=== PATIENT | male | born 1980 ===

== ENCOUNTER 2019-06-16 17:41 | Inpatient (IN) | payer OTHER, SELFPAY ==
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
[2019-06-16 17:43] VITALS: BP 132/90; PULSE 80; RESP 18; O2SAT 96
--- NOTE | 2019-06-16 17:50 | DI.CT_ITS ---
SYMPTOM/DIAGNOSIS: TRAUMA CHEST CT: There is a small right pneumothorax. There is mild atelectasis at the right lung base. No effusion seen. There are nondisplaced fractures of the right 2nd, 3rd and 4th ribs. The spine appears intact. The heart and great vessels appear intact. IMPRESSION: Right 2nd through 4th rib fractures. Small right pneumothorax. CT ABDOMEN AND PELVIS: There is artifact related to the patient's arm positioning. The liver, spleen, pancreas, kidneys and adrenals appear normal. There is no free air or free fluid. There is no bowel dilatation or wall thickening. Bladder and prostate appear intact. No acute fractures are seen. There is an old left L3 transverse process fracture. IMPRESSION: No acute abnormality.
[2019-06-16] MEDS: Normal Saline 1,000 ML 1000 ML IV ×2 (18:13→18:31)
--- NOTE | 2019-06-16 18:15 | DI.CT_ITS ---
SYMPTOM/DIAGNOSIS: TRAUMA NONCONTRAST HEAD CT: There are no prior comparison exams. No intracranial hemorrhage or skull fracture is seen. The ventricles are normal in size. The orbits and sinuses are unremarkable as visualized. IMPRESSION: Negative head CT. CERVICAL SPINE CT: There is no evidence of fracture or subluxation. Degenerative disc changes are seen greatest at C5-6 and C6-7. A small right pneumothorax is visible. The airway appears intact. IMPRESSION: Degenerative changes. Small right pneumothorax.
--- NOTE | 2019-06-16 18:25 | DI.CT_ITS ---
SYMPTOM/DIAGNOSIS: RECON CT THORACIC SPINE: The exam was reconstructed from the chest CT. There is no evidence of thoracic spine fracture. a small right pneumothorax is partially visualized. IMPRESSION: Small right pneumothorax. No thoracic spine fracture. CT LUMBAR SPINE: The exam was reconstructed from the abdomen and pelvic CT. No acute fracture is seen. There is an old left L3 transverse process fracture. There are minimal degenerative disc changes. IMPRESSION: Old left L3 transverse process fracture. No acute abnormality.
[2019-06-16] MEDS: Normal Saline Flush 10 ML SYR IVP (18:27)
[2019-06-16] MEDS: Omnipaque 350 MG/ML 100 ML BTL IJ (18:27)
[2019-06-16] MEDS: fentaNYL 100 MCG/2 ML VIAL 25 MCG IVP (18:31)
[2019-06-16 18:36] LABS: Abs Immature Grans 0.06 k/cumm (0.0-0.09); Absolute Basophil Count 0.03 k/cumm (0.0-0.2); Absolute Eosinophil Count 0.09 k/cumm (0.0-0.7); Absolute Lymphocyte Count 1.34 k/cumm (1.2-3.4); Absolute Monocyte Count 1.24 k/cumm (0.11-0.7); Absolute Neutrophil Count 8.51 k/cumm (1.2-6.7); Basophils % 0.3; Eosinophils % 0.8; HCT 40.5 % (40.0-50.0); HGB 13.7 g/dL (13.5-17.5); Immature Grans % 0.5; Lymphocytes % 11.9; Mean Corp. HGB Concentration 33.8 g/dL (32.0-36.0); Mean Corpuscular Hemoglobin 30.4 pg (27.0-33.0); Mean Platelet Volume 9.8 fL (8.0-11.0); Neutrophils % 75.5; Platelet Count 280 x1000/uL (130-400); RBC Distribution Width 12.3 % (11.8-14.1); White Blood Cell Count 11.27 k/cumm (4.4-10.8)
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
[2019-06-16 18:49] LABS: INR 1.1 (0.9-1.1); PTT Activated 20.1 sec (21.0-31.4); Prothrombin Time 10.8 sec (9.3-11.0)
[2019-06-16 18:55] LABS: ALT 52 U/L (16-63); AST 27 U/L (15-37); Albumin 3.5 g/dL (3.4-5.0); Alkaline Phosphatase 48 U/L (46-116); Anion Gap 4.7 mmol/L (3-11); BUN 24 mg/dL (7-18); Bilirubin, Total 0.3 mg/dL (0.2-1.0); CO2 28.3 mmol/L (21.0-32.0); CREATININE 1.07 mg/dL (0.70-1.30); Calcium 8.5 mg/dL (8.5-10.1); Chloride 99 mmol/L (98-107); Glucose 136 mg/dL (70-100); Magnesium 1.5 mg/dL (1.8-2.4); Potassium 3.7 mmol/L (3.5-5.1); Sodium 132 mmol/L (136-145); Total Protein 6.7 g/dL (6.4-8.2)
[2019-06-16 18:59] LABS: Troponin I < 0.05 ng/mL (0.00-0.06)
[2019-06-16] MEDS: Bupivacaine LIPOSOME/PF 133 MG/10 ML VIAL IJ (19:45)
[2019-06-16] MEDS: Bupivacaine 0.25% Pres-Free 30 ML VIAL (19:45)
[2019-06-16] MEDS: Magnesium Oxide 400 MG TAB PO (20:13)
[2019-06-16 20:42] VITALS: BP 135/83; PULSE 79; RESP 17; TEMP 37.8; O2SAT 97
[2019-06-16 20:53] VITALS: BP 135/83; PULSE 79; RESP 17; TEMP 37.8; O2SAT 97
[2019-06-16] MEDS: Acetaminophen 325 MG TAB 650 MG PO (21:56)
[2019-06-16 23:51] VITALS: BP 135/68; PULSE 79; RESP 18; TEMP 37.9; O2SAT 97
[2019-06-17] MEDS: Acetaminophen 325 MG TAB 650 MG PO (04:55)
--- NOTE | 2019-06-17 07:00 | DI.RAD_ITS ---
SYMPTOM/DIAGNOSIS: PNEUMOTHORAX PA AND LATERAL CHEST: 17 June 2019 Comparison is made with chest CT of 16 June 2019 The heart size is normal. There is a small pneumothorax seen at the right lung apex. A fracture of the right 3rd rib is faintly visible. The lungs appear clear. No infiltrate or pleural effusion is seen. The heart size is normal. The spine appears intact. IMPRESSION: Small right pneumothorax.
[2019-06-17 07:18] VITALS: BP 131/73; PULSE 69; RESP 17; TEMP 36.9; O2SAT 98
[2019-06-17] MEDS: Normal Saline Flush 10 ML SYR IVP ×2 (07:50→10:57)
--- NOTE | 2019-06-17 08:06 | PDOC.CMIN ---
- If Service Date Differs Date of service: 06/17/19 Time of Service: 08:06 Care Management Initial Assess REASON FOR HOSPITALIZATION:: Pneumothorax PAST MEDICAL HISTORY/PAST SURGICAL HISTORY:: Nikhil was discharged to his home in [place] before CM was able to meet with him. ADVANCE DIRECTIVES:: None on file Has patient been provided with information about the portal?: No Did the patient sign up for the portal?: No CODE STATUS:: Full Code INSURANCE COVERAGE / FINANCIAL ISSUES:: [facility] PRIMARY CARE PHYSICIAN:: None POTENTIAL DISCHARGE NEEDS:: Appointment with new PCP, discharge plan follow up PATIENT/FAMILY EDUCATION NEEDS:: Discharge plan, limitations, follow up. Ask Me [employer]. TRANSPORTATION:: via private vehicle with family when ready PLAN:: Nikhil will be discharged home this morning. His will transport via private vehicle to [place] where they live. He will follow up with his PCP and discharge plan of care.
--- NOTE | 2019-06-17 08:34 | DI.VRAD_ITS ---
EXAM: XR Chest, 2 Views EXAM DATE/TIME: 06/17/2019 8:02 AM CLINICAL HISTORY: 39 years old, male; Other: Pneumothorax TECHNIQUE: Imaging protocol: XR of the chest, 2 views. COMPARISON: CT chest June 16 FINDINGS: Lungs: Unremarkable. No consolidation. Pleural space: No significant pneumothorax. Heart/Mediastinum: Unremarkable. No cardiomegaly. Bones/joints: Degenerative changes in the right glenohumeral joint IMPRESSION: No significant pneumothorax. Dictated and Authenticated by: Pooja Camacho MD. Ordering:MIMI Gong MD
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
[2019-06-17] MEDS: Ketorolac 30 MG/ML VIAL IVP (10:56)
== END 2019-06-17 13:48 | disposition home or self-care (01) | DRG 200 ==
LOC: ER 20:26 → MS 20:33
PROVIDERS: Admitting Provider Surgery; Emergency Provider Physician Assistant; Visit Provider Surgery
DX: S27.0XXA Traumatic pneumothorax, initial encounter (principal); S22.41XA Multiple fractures of ribs, right side, initial encounter for closed fracture; V19.88XA Pedal cyclist (driver) (passenger) injured in other specified transport accidents, initial encounter; Y93.55 Activity, bike riding; Y92.838 Other recreation area as the place of occurrence of the external cause; Y99.8 Other external cause status
CPT/HCPCS: 36415; 74177; 80053; 96361; 96374; 99235; 99238; 99285; 70450; 71046; 71260; 72125; 83735; 84484; 85025; 85610; 85730; 99284; J1885; J3010; J3490